=== PATIENT | male | born 1965 | race Caucasian/White ===

== ENCOUNTER 2019-11-22 23:17 | Emergency (ER) | payer OTHER ==
[~2019-11-22] VITALS: Ht 180.3 cm; Wt 117.9 kg
[2019-11-22] MEDS ORDERED: TDAP [DIPH/PERTUSSIS/TET] 0.5 ML VIAL IM ONE (23:45)
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
[2019-11-22] MEDS: TDAP [DIPH/PERTUSSIS/TET] 0.5 ML VIAL IM ONE (23:58)
--- NOTE | 2019-11-23 00:01 | NUR ---
EMT AT BEDSIDE FOR WOUND CARE
[2019-11-23] MEDS ORDERED: HYDROCODONE/APAP 5/325MG TABLET ONE (01:43)
[2019-11-23] MEDS: HYDROCODONE/APAP 5/325MG TABLET PO ONE (01:46)
--- NOTE | 2019-11-23 01:57 | NUR ---
pt cleared for discharged per dr. cool. Patient discharged in stable condition under [facility] custody. Written and verbal after care instructions given. Patient verbalizes understanding of instruction. pt ambulatory with steady gait.
[2019-11-23 01:59] VITALS: BP 148/78
== END 2019-11-23 01:59 ==
LOC: ER 23:17
DX: S00.03XA Contusion of scalp, initial encounter (principal); S00.81XA Abrasion of other part of head, initial encounter; S80.212A Abrasion, left knee, initial encounter; S80.211A Abrasion, right knee, initial encounter; S91.102A Unspecified open wound of left great toe without damage to nail, initial encounter; M54.5 Low back pain; Y08.89XA Assault by other specified means, initial encounter; Y93.89 Activity, other specified; Y92.89 Other specified places as the place of occurrence of the external cause; Y99.8 Other external cause status
CPT/HCPCS: 70450; 70486; 72070; 72125; 90471; 90715; 99285; A6403